=== PATIENT | female | born 1950 | race Caucasian/White ===

== ENCOUNTER → 2016-09-09 18:47 | Outpatient (CLI) | payer MEDICARE | END | disposition home or self-care (01) | LOC: D.LABREF 18:47 | DX: Z11.59 Encounter for screening for other viral diseases (principal) ==

== ENCOUNTER → 2017-04-13 12:09 | Outpatient (CLI) | payer MEDICARE | END | disposition home or self-care (01) | LOC: D.CT 11:30 | DX: S32.401A Unspecified fracture of right acetabulum, initial encounter for closed fracture (principal); X58.XXXA Exposure to other specified factors, initial encounter; Y93.89 Activity, other specified; Y92.029 Unspecified place in mobile home as the place of occurrence of the external cause ==

== ENCOUNTER 2017-06-25 10:20 | Emergency (ER) | payer MEDICARE ==
[2017-06-25 10:50] LABS: BASOPHILS 0.1 % (0-2); HEMATOCRIT 41.9 % (36.0-48.0); HEMOGLOBIN 14.4 g/dL (12-16); IMMATURE GRANULOCYTES 0.1 % (0-5); LYMPHOCYTES 19.2 % (15-50); MCH 30.3 pg (26.0-34.0); MCHC 34.4 g/dL (31.0-37.0); MCV 88.2 fL (80.0-100.0); MEAN PLATELET VOLUME 9.3 fL (7.4-10.4); MONOCYTES 7.6 % (2-11); PLATELET COUNT 215 10x3/uL (130-400); RBC 4.75 10x6/uL (4.00-5.40); RDW 12.8 % (11.5-14.5)
[2017-06-25 10:52] LABS: APPEARANCE CLEAR (CLEAR); BILIRUBIN NEGATIVE (NEGATIVE); COLOR YELLOW (YELLOW); GLUCOSE NEGATIVE (NEGATIVE); KETONE NEGATIVE (NEGATIVE); NITRITE NEGATIVE (NEGATIVE); PROTEIN NEGATIVE (NEGATIVE); SPECIFIC GRAVITY 1.015 (1.005-1.020); UROBILINOGEN NORMAL (NORMAL)
[2017-06-25 10:59] LABS: UDS - AMPHET NEGATIVE QUAL (NEGATIVE); UDS - BARB NEGATIVE QUAL (NEGATIVE); UDS - BENZO NEGATIVE QUAL (NEGATIVE); UDS - COCAINE NEGATIVE QUAL (NEGATIVE); UDS - OPIATE NEGATIVE QUAL (NEGATIVE); UDS - PCP NEGATIVE QUAL (NEGATIVE); UDS - THC NEGATIVE QUAL (NEGATIVE)
[2017-06-25 11:12] LABS: ALBUMIN 3.9 g/dL (3.4-5.0); ALKALINE PHOSPHATASE 88 U/L (46-116); ALT (SGPT) 35 U/L (10-68); BILIRUBIN - TOTAL 0.31 mg/dL (0.2-1.3); CALC OSMOLALITY 281 mosm/kg (275-300); CALCIUM 8.7 mg/dL (8.5-10.1); CARBON DIOXIDE 26.2 mmol/L (21.0-32.0); CHLORIDE - SERUM 104 mmol/L (98-107); CREATININE - SERUM 0.8 mg/dL (0.6-1.3); GLUCOSE 137 mg/dL (74-106); POTASSIUM - SERUM 3.5 mmol/L (3.5-5.1); PROTEIN - SERUM 7.3 g/dL (6.4-8.2); SODIUM 139 mmol/L (136-145); UREA NITROGEN 18 mg/dL (7-18); eGFR NON AFRICAN AMERICAN 75 mL/min (90-120)
== END 2017-06-25 16:23 | disposition short-term general hospital (02) ==
LOC: D.ER 10:20
PROVIDERS: Family Medicine
DX: R41.82 Altered mental status, unspecified (principal); I10 Essential (primary) hypertension

== ENCOUNTER 2017-12-03 10:16 | Inpatient (IN) | payer MEDICARE ==
[2017-12-03] VITALS (7 sets, daily range): BP systolic 140–186; BP diastolic 76–99; BMI 27.0
[~2017-12-03] VITALS: Ht 170.2 cm; Wt 79.1 kg
[2017-12-03] MEDS ORDERED: ZESTRIL40 MG PO (10:21)
[2017-12-03 11:08] LABS: BASOPHILS 0.1 % (0-2); EOSINOPHILS 0 % (0-7); HEMATOCRIT 42.3 % (36.0-48.0); HEMOGLOBIN 14.6 g/dL (12-16); IMMATURE GRANULOCYTES 0.3 % (0-5); LYMPHOCYTES 6.4 % (15-50); MCH 28.9 pg (26.0-34.0); MCHC 34.5 g/dL (31.0-37.0); MCV 83.6 fL (80.0-100.0); MONOCYTES 8.6 % (2-11); NEUTROPHILS 84.6 % (40-80); PLATELET COUNT 244 10x3/uL (130-400); RBC 5.06 10x6/uL (4.00-5.40); RDW 12.9 % (11.5-14.5); WBC 13.5 10x3/uL (4.8-10.8)
[2017-12-03 11:11] LABS: APTT 27.3 SECONDS (22.8-39.4); INR 1.02 (0.85-1.17)
[2017-12-03 11:11] LABS: UDS - AMPHET NEGATIVE QUAL (NEGATIVE); UDS - BARB NEGATIVE QUAL (NEGATIVE); UDS - BENZO NEGATIVE QUAL (NEGATIVE); UDS - COCAINE NEGATIVE QUAL (NEGATIVE); UDS - OPIATE NEGATIVE QUAL (NEGATIVE); UDS - PCP NEGATIVE QUAL (NEGATIVE); UDS - THC NEGATIVE QUAL (NEGATIVE)
[2017-12-03 11:16] LABS: APPEARANCE CLOUDY (CLEAR); BILIRUBIN NEGATIVE (NEGATIVE); COLOR DK YELLOW (YELLOW); GLUCOSE NEGATIVE (NEGATIVE); KETONE SMALL mg/dL (NEGATIVE); NITRITE NEGATIVE (NEGATIVE); PROTEIN 2+ mg/dL (NEGATIVE); UROBILINOGEN NORMAL (NORMAL)
[2017-12-03 11:20] LABS: BACTERIA MODERATE /hpf (NONE SEEN); EPITHELIAL CELLS 0-5 /hpf (0-5); GRANULAR CAST OCC /lpf (NONE SEEN); HYALINE CAST 0-5 /lpf (NONE SEEN); MUCUS >1+ /lpf (NONE SEEN); RED CELLS - URINE 0-5 /hpf (0-5)
[2017-12-03 11:30] LABS: ALBUMIN 3.6 g/dL (3.4-5.0); ALKALINE PHOSPHATASE 132 U/L (46-116); ALT (SGPT) 25 U/L (10-68); AMYLASE - SERUM 26 U/L (25-115); BILIRUBIN - DIRECT 0.13 mg/dL (0.00-0.30); BILIRUBIN - TOTAL 0.52 mg/dL (0.2-1.3); CALC OSMOLALITY 274 mosm/kg (275-300); CALCIUM 8.9 mg/dL (8.5-10.1); CARBON DIOXIDE 28.9 mmol/L (21.0-32.0); CHLORIDE - SERUM 97 mmol/L (98-107); CKMB 1.3 U/L (0.0-3.6); CREATINE KINASE 91 UL (21-215); GLUCOSE 148 mg/dL (74-106); LIPASE 90 U/L (73-393); MAGNESIUM - SERUM 1.9 mg/dL (1.8-2.4); POTASSIUM - SERUM 3.7 mmol/L (3.5-5.1); PROTEIN - SERUM 8.3 g/dL (6.4-8.2); SODIUM 136 mmol/L (136-145); THYROID STIMULATING HORMONE 0.97 uIU/mL (0.36-3.74); TROPONIN-I < 0.017 ng/mL (0.000-0.060); UREA NITROGEN 12 mg/dL (7-18)
[2017-12-03 11:37] LABS: CREATININE - SERUM 0.9 mg/dL (0.6-1.3); eGFR NON AFRICAN AMERICAN 66 mL/min (90-120)
[2017-12-03] MEDS ORDERED: LISINOPRIL10 MG PO (15:21)
[2017-12-03] MEDS ORDERED: DITROPAN X10 MG/BOTT PO (15:23)
[2017-12-03 18:19] LABS: CHOL - HDL RATIO 2.9 ratio (2.3-4.1); LDL-HDL RATIO 1.8 ratio (1.5-3.5)
[2017-12-04 05:25] LABS: BASOPHILS 0.1 % (0-2); EOSINOPHILS 0 % (0-7); HEMATOCRIT 40.1 % (36.0-48.0); HEMOGLOBIN 13.8 g/dL (12-16); IMMATURE GRANULOCYTES 0.3 % (0-5); LYMPHOCYTES 6.1 % (15-50); MCH 28.9 pg (26.0-34.0); MCHC 34.4 g/dL (31.0-37.0); MCV 83.9 fL (80.0-100.0); MEAN PLATELET VOLUME 9.5 fL (7.4-10.4); MONOCYTES 11.1 % (2-11); NEUTROPHILS 82.4 % (40-80); PLATELET COUNT 262 10x3/uL (130-400); RBC 4.78 10x6/uL (4.00-5.40); RDW 13.2 % (11.5-14.5); WBC 16.1 10x3/uL (4.8-10.8)
[2017-12-04 05:51] LABS: ALBUMIN 2.8 g/dL (3.4-5.0); ANION GAP 13.2 mmol/L (8-16); BILIRUBIN - TOTAL 0.76 mg/dL (0.2-1.3); CALCIUM 8.7 mg/dL (8.5-10.1); CARBON DIOXIDE 26.5 mmol/L (21.0-32.0); POTASSIUM - SERUM 3.7 mmol/L (3.5-5.1); PROTEIN - SERUM 7.1 g/dL (6.4-8.2)
[2017-12-04 11:53] VITALS: BP 89/58
[2017-12-04 13:14] VITALS: BMI 26.2
[2017-12-04 16:17] VITALS: BP 127/73
[2017-12-04 20:32] VITALS: BP 85/56
[2017-12-05 01:16] VITALS: BP 101/59
[2017-12-05 04:00] VITALS: BP 84/54
[2017-12-05 05:50] LABS: ALBUMIN 2.2 g/dL (3.4-5.0); ANION GAP 15.4 mmol/L (8-16); BILIRUBIN - TOTAL 0.7 mg/dL (0.2-1.3); CARBON DIOXIDE 24.2 mmol/L (21.0-32.0); CREATININE - SERUM 1.2 mg/dL (0.6-1.3); POTASSIUM - SERUM 3.6 mmol/L (3.5-5.1)
[2017-12-05 05:53] LABS: BASOPHILS 0.1 % (0-2); EOSINOPHILS 0 % (0-7); HEMATOCRIT 35.6 % (36.0-48.0); IMMATURE GRANULOCYTES 0.5 % (0-5); MCH 28.6 pg (26.0-34.0); MCHC 33.7 g/dL (31.0-37.0); MCV 84.8 fL (80.0-100.0); MEAN PLATELET VOLUME 9.5 fL (7.4-10.4); MONOCYTES 9.8 % (2-11); NEUTROPHILS 80.6 % (40-80); PLATELET COUNT 220 10x3/uL (130-400); RDW 13.4 % (11.5-14.5); WBC 15.5 10x3/uL (4.8-10.8)
[2017-12-05 08:14] VITALS: Ht 170.2 cm; Wt 79.1 kg
[2017-12-05 08:18] VITALS: BP 165/63
[2017-12-05 11:17] VITALS: BP 169/75
[2017-12-05 17:37] VITALS: BP 119/74
[2017-12-05 21:25] VITALS: BP 143/89
[2017-12-06 01:28] VITALS: BP 132/91
[2017-12-06 04:00] VITALS: BP 132/89
[2017-12-06 05:11] LABS: BASOPHILS 0 % (0-2); EOSINOPHILS 0 % (0-7); HEMATOCRIT 37.3 % (36.0-48.0); HEMOGLOBIN 12.6 g/dL (12-16); IMMATURE GRANULOCYTES 0.4 % (0-5); LYMPHOCYTES 3.8 % (15-50); MCH 28.6 pg (26.0-34.0); MCHC 33.8 g/dL (31.0-37.0); MCV 84.8 fL (80.0-100.0); MEAN PLATELET VOLUME 9.4 fL (7.4-10.4); MONOCYTES 5.9 % (2-11); NEUTROPHILS 89.9 % (40-80); PLATELET COUNT 256 10x3/uL (130-400); RDW 13.5 % (11.5-14.5); WBC 12.9 10x3/uL (4.8-10.8)
[2017-12-06 05:31] LABS: ANION GAP 15.9 mmol/L (8-16); BILIRUBIN - TOTAL 0.5 mg/dL (0.2-1.3); CALCIUM 8.5 mg/dL (8.5-10.1); CARBON DIOXIDE 24.1 mmol/L (21.0-32.0); CREATININE - SERUM 0.9 mg/dL (0.6-1.3); PROTEIN - SERUM 6.2 g/dL (6.4-8.2)
[2017-12-06 09:05] VITALS: BP 137/93
[2017-12-06 11:14] VITALS: BP 143/89
[2017-12-06 15:40] VITALS: BP 124/81
[2017-12-06 21:55] VITALS: BP 150/86
[2017-12-07 00:58] VITALS: BP 132/88
[2017-12-07 04:00] VITALS: BP 150/90
[2017-12-07 05:51] LABS: BASOPHILS 0 % (0-2); EOSINOPHILS 0 % (0-7); HEMATOCRIT 31.5 % (36.0-48.0); HEMOGLOBIN 10.4 g/dL (12-16); IMMATURE GRANULOCYTES 0.4 % (0-5); LYMPHOCYTES 9.9 % (15-50); MCV 84.7 fL (80.0-100.0); MEAN PLATELET VOLUME 9.1 fL (7.4-10.4); MONOCYTES 9.6 % (2-11); NEUTROPHILS 80.1 % (40-80); PLATELET COUNT 249 10x3/uL (130-400); RBC 3.72 10x6/uL (4.00-5.40); RDW 13.7 % (11.5-14.5); WBC 10.9 10x3/uL (4.8-10.8)
[2017-12-07 06:20] LABS: ALBUMIN 1.8 g/dL (3.4-5.0); ALKALINE PHOSPHATASE 99 U/L (46-116); ALT (SGPT) 70 U/L (10-68); BILIRUBIN - TOTAL 0.34 mg/dL (0.2-1.3); CALC OSMOLALITY 280 mosm/kg (275-300); CALCIUM 8.3 mg/dL (8.5-10.1); CARBON DIOXIDE 29.1 mmol/L (21.0-32.0); CHLORIDE - SERUM 106 mmol/L (98-107); CREATININE - SERUM 0.7 mg/dL (0.6-1.3); GLUCOSE 125 mg/dL (74-106); POTASSIUM - SERUM 3.8 mmol/L (3.5-5.1); PROTEIN - SERUM 5.7 g/dL (6.4-8.2); SODIUM 140 mmol/L (136-145); UREA NITROGEN 14 mg/dL (7-18); eGFR NON AFRICAN AMERICAN 88 mL/min (90-120)
[2017-12-07 08:15] VITALS: BP 146/85
[2017-12-07] MEDS ORDERED: LEVAQUIN750 MG PO (10:10)
[2017-12-07] MEDS ORDERED: HYDROCODON-ACE1 EAC7 PO (12:17)
[2017-12-07 12:34] VITALS: BP 127/84
== END 2017-12-07 14:06 | disposition home or self-care (01) | DRG 853 ==
LOC: D.ER 10:16 → D.M2 14:05 → D.EDHOLD 14:05 → D.M2 14:26
PROVIDERS: Emergency Medicine; Family Medicine; Internal Medicine Nephrology; Surgery
PROC: 0FT44ZZ Resection of Gallbladder, Percutaneous Endoscopic Approach (ICD-10-PCS; principal; 2017-12-05 12:30)
DX: A41.9 Sepsis, unspecified organism (principal); G93.40 Encephalopathy, unspecified; N39.0 Urinary tract infection, site not specified; K81.0 Acute cholecystitis; F05 Delirium due to known physiological condition; I10 Essential (primary) hypertension

== ENCOUNTER 2017-12-25 06:30 | Outpatient (CLI) | payer MEDICARE ==
[2017-12-05 08:14] VITALS: BMI 26.2
[~2017-12-25 06:30] MED LIST: DITROPAN X10 MG/BOTT PO; HYDROCODON-ACE1 EAC7 PO; LEVAQUIN750 MG PO; LISINOPRIL10 MG PO; ZESTRIL40 MG PO
== END 2017-12-25 23:59 | disposition home or self-care (01) ==
LOC: D.MAMMO 06:30
DX: K80.10 Calculus of gallbladder with chronic cholecystitis without obstruction (principal)

== ENCOUNTER 2018-01-01 06:15 | Day surgery (SDC) | payer MEDICARE ==
[2017-12-29 11:58] LABS: BASOPHILS 0.5 % (0-2); EOSINOPHILS 1.6 % (0-7); HEMATOCRIT 40.3 % (36.0-48.0); IMMATURE GRANULOCYTES 0.5 % (0-5); LYMPHOCYTES 35.6 % (15-50); MCH 28.6 pg (26.0-34.0); MCHC 32.3 g/dL (31.0-37.0); MCV 88.8 fL (80.0-100.0); MEAN PLATELET VOLUME 9.1 fL (7.4-10.4); MONOCYTES 11.1 % (2-11); NEUTROPHILS 50.7 % (40-80); PLATELET COUNT 190 10x3/uL (130-400); RBC 4.54 10x6/uL (4.00-5.40); RDW 14.2 % (11.5-14.5); WBC 3.8 10x3/uL (4.8-10.8)
[2017-12-29 12:06] LABS: APTT 25.3 SECONDS (22.8-39.4); INR 0.98 (0.85-1.17); PROTIME 12.6 SECONDS (11.6-15.0)
[~2018-01-01] VITALS: Ht 170.2 cm; Wt 74.8 kg
[2018-01-01 07:12] VITALS: BP 145/74; Ht 170.2 cm; Wt 74.8 kg
[2018-01-01] MEDS ORDERED: HYDROCODON-ACE1 EAC7 PO (09:22)
== END 2018-01-01 11:25 | disposition home or self-care (01) ==
LOC: D.OPS 06:15 → D.PAN 09:00 → D.OPS 09:00 → D.PAN 09:10 → D.OPS 11:25
PROVIDERS: Anesthesiology
DX: C22.1 Intrahepatic bile duct carcinoma (principal); Z01.812 Encounter for preprocedural laboratory examination

== ENCOUNTER → 2018-01-11 10:21 | Outpatient (CLI) | payer MEDICARE ==
[2018-01-01 07:12] VITALS: BMI 25.9
[~2018-01-11 10:21] MED LIST changes: +CLEOCIN HCL300 MG PO
== END | disposition home or self-care (01) ==
LOC: D.CT 10:21
DX: K80.10 Calculus of gallbladder with chronic cholecystitis without obstruction (principal)

== ENCOUNTER → 2018-01-17 13:15 | Outpatient (CLI) | payer MEDICARE ==
[2018-01-01 07:12] VITALS: BMI 25.9
== END | disposition home or self-care (01) ==
LOC: D.US 13:15
DX: N63.11 Unspecified lump in the right breast, upper outer quadrant (principal)

== ENCOUNTER 2018-02-14 05:55 | Day surgery (SDC) | payer MEDICARE ==
[2018-02-13 11:39] LABS: BASOPHILS 0.2 % (0-2); EOSINOPHILS 1.4 % (0-7); HEMATOCRIT 42.2 % (36.0-48.0); HEMOGLOBIN 14.1 g/dL (12-16); IMMATURE GRANULOCYTES 0.2 % (0-5); LYMPHOCYTES 31.4 % (15-50); MCH 28.9 pg (26.0-34.0); MCHC 33.4 g/dL (31.0-37.0); MCV 86.5 fL (80.0-100.0); MEAN PLATELET VOLUME 9.2 fL (7.4-10.4); MONOCYTES 9.1 % (2-11); NEUTROPHILS 57.7 % (40-80); PLATELET COUNT 173 10x3/uL (130-400); RBC 4.88 10x6/uL (4.00-5.40); RDW 13.9 % (11.5-14.5); WBC 4.4 10x3/uL (4.8-10.8)
[2018-02-13 12:07] LABS: APTT 30.9 SECONDS (22.8-39.4); INR 1.1 (0.85-1.17); PROTIME 13.6 SECONDS (11.6-15.0)
[~2018-02-14] VITALS: Ht 167.6 cm; Wt 76.2 kg
--- NOTE | ~2018-02-14 | OP ---
PATIENT NAME: SAMY MENCHACA MEDICAL RECORD: [id number] :46 LOCATION:D.OPS ADMISSION DATE: SURGEON: FEDE WHITAKER MD DATE OF OPERATION: 02/14/2018 SURGEON: Fede Whitaker MD MANUFACTURING MECHANIC: Sumaya Frankel APN PREOPERATIVE DIAGNOSES: 1. Metastatic cancer with unknown primary. 2. Breast mass. POSTOPERATIVE DIAGNOSES: 1. Metastatic cancer with unknown primary. 2. Breast mass. PROCEDURE PERFORMED: 1. Needle right breast lumpectomy with preoperative needle localization. 2. [place] lymph node biopsy using Lymphazurin blue dye. ANESTHESIA: General. COMPLICATIONS: None. SPECIMENS: 1. Right breast lumpectomy with wire. 2. Right sentinel lymph node. ESTIMATED BLOOD LOSS: 50 cc. WOUND CLASS: Clean. OPERATIVE COURSE: After consent was obtained, the patient was taken to the operating room. Mammographic images were placed. A timeout was taken to confirm the correct patient and procedure. General anesthesia was given. The right breast was prepped and draped in typical sterile fashion. There was a needle located in the right upper outer quadrant. Local anesthetic was injected around the needle. The elliptical skin incision was made approximately 4 cm in diameter. Dissection continued with sharp scissor dissection along the length and course of the wire creating a wide tissue plane. Once the right breast lumpectomy and needle localization wire were fully and circumferentially dissected, they were placed in the mammography plate and sent for radiographic confirmation, which was complete. Lymphazurin dye was injected in a circumareolar fashion. The right breast incision was packed and axillary incision was then made. Using a 15 blade scalpel, dissection continued to the subcutaneous tissue using Metzenbaum scissor dissection. A large blue lymph node was identified. It was circumferentially dissected using Hemoclips and sharp scissor dissection. Once segments were dissected, it was passed off the field and sent for permanent pathology. The axillary wound was then copiously irrigated and suctioned. Surgicel was applied. The incision was closed in 2 layers. Subcutaneous was closed with 3-0 Vicryl suture. The skin was closed with 4-0 Stratafix, Mastisol, and Steri-Strips. The packing was removed in the right breast incision. The wound was copiously irrigated and suctioned. Hemostasis was obtained with electrocautery. The Surgicel was placed into the OPERATIVE REPORT [id number] SAMY MENCHACA wound bed. The deep subcutaneous was closed with 3-0 Vicryl suture, superficial subcutaneous tissue was closed with 3-0 Vicryl suture. The skin was closed with 4-0 Stratafix, Mastisol, and Steri-Strips. At the end of the case, all needle and instrument counts were correct. No complications occurred. Gauze dressings were placed over the incisions as well as circumferential Francis wraps. At the end of the case, all needle and instrument counts were correct. No complications occurred. The patient was extubated and transferred to the PACU in stable condition. TRANSINT:[id number] Voice Confirmation ID: [id number] DOCUMENT ID: [id number] FEDE WHITAKER MD at 1240 CC: [id number] DICTATION DATE: 02/14/18 1120 HAND SPRING REPAIRER HELPER: 02/14/18 1218 [id number] [place] [address]
[~2018-02-14 05:55] MED LIST changes: -CLEOCIN HCL300 MG PO
[2018-02-14 09:07] VITALS: BP 126/76; Ht 167.6 cm; Wt 76.2 kg
[2018-02-14] MEDS ORDERED: HYDROCODON-ACE1 EAC7 PO (11:14)
== END 2018-02-14 14:35 | disposition home or self-care (01) ==
LOC: D.OPS 05:55 → D.MAMMO 08:00 → D.OPS 08:00 → D.PAN 08:00 → D.OPS 14:35
PROVIDERS: Anesthesiology
DX: C79.9 Secondary malignant neoplasm of unspecified site (principal); N63.11 Unspecified lump in the right breast, upper outer quadrant; Z01.812 Encounter for preprocedural laboratory examination

== ENCOUNTER 2018-03-13 10:45 | Emergency (ER) | payer MEDICARE ==
[~2018-03-13] VITALS: Ht 167.6 cm; Wt 75.0 kg
[2018-03-13 10:49] VITALS: Ht 167.6 cm; Wt 75.0 kg
[2018-03-13 11:43] LABS: BASOPHILS 0.2 % (0-2); EOSINOPHILS 1.6 % (0-7); HEMATOCRIT 36.1 % (36.0-48.0); HEMOGLOBIN 11.9 g/dL (12-16); IMMATURE GRANULOCYTES 0.2 % (0-5); LYMPHOCYTES 27.5 % (15-50); MCH 29.2 pg (26.0-34.0); MCV 88.5 fL (80.0-100.0); MEAN PLATELET VOLUME 8.9 fL (7.4-10.4); NEUTROPHILS 55.5 % (40-80); RBC 4.08 10x6/uL (4.00-5.40); RDW 13.6 % (11.5-14.5); WBC 5.5 10x3/uL (4.8-10.8)
[2018-03-13 11:44] LABS: PLATELET COUNT 213 10x3/uL (130-400)
[2018-03-13 11:58] LABS: ALBUMIN 3.1 g/dL (3.4-5.0); ALKALINE PHOSPHATASE 86 U/L (46-116); ALT (SGPT) 22 U/L (10-68); BILIRUBIN - TOTAL 0.26 mg/dL (0.2-1.3); C-REACTIVE PROTEIN 4.8 mg/dL (0.0-0.9); CALC OSMOLALITY 279 mosm/kg (275-300); CALCIUM 8.7 mg/dL (8.5-10.1); CARBON DIOXIDE 24.9 mmol/L (21.0-32.0); CHLORIDE - SERUM 105 mmol/L (98-107); CREATININE - SERUM 0.8 mg/dL (0.6-1.3); GLUCOSE 106 mg/dL (74-106); POTASSIUM - SERUM 4.3 mmol/L (3.5-5.1); PROTEIN - SERUM 6.6 g/dL (6.4-8.2); SODIUM 139 mmol/L (136-145); UREA NITROGEN 17 mg/dL (7-18); eGFR NON AFRICAN AMERICAN 75 mL/min (90-120)
[2018-03-13] MEDS ORDERED: CLEOCIN HCL300 MG PO (14:06)
[2018-03-13 14:35] VITALS: BP 128/73
== END 2018-03-13 14:35 | disposition home or self-care (01) ==
LOC: D.ER 10:45
PROVIDERS: Emergency Medicine
DX: L76.32 Postprocedural hematoma of skin and subcutaneous tissue following other procedure (principal); Z98.890 Other specified postprocedural states; Z86.73 Personal history of transient ischemic attack (TIA), and cerebral infarction without residual deficits; I10 Essential (primary) hypertension

== ENCOUNTER → 2018-06-21 12:01 | Outpatient (CLI) | payer MEDICARE ==
[2018-03-13 10:49] VITALS: BMI 26.7
--- NOTE | ~2018-06-21 | HEMODYNAMI ---
PATIENT:SAMY MENCHACA MEDICAL RECORD: [id number] : 46 LOCATION:AKUA ADMISSION DATE: 06/21/18 Generatedon:06/21/201813:06 Patient name: SAMY MENCHACA Patient #: [id number] SSN: DO B: 1950 Date of study: 06/21/2018 Page: Of Hemodynamic Procedure Report Patient Data Patient Demographics Procedure consent was obtained First Name: SAMY Gender: Female Last Name: NIKOLAI : 1950 Middle Initial: SAMMY Age: 68 year(s) Patient #: [id number] Race: Unknown Additional ID: [id number] Contact details [address]: [address] [place] [address] State: [place] City: [place] Zip code: [address] Past Medical History Allergies Allergen Reaction Date Comments Reported NSAIDs 06/21/2018 Admission Admission Data Admission Date: 06/21/2018 Admission Time: 12:01 Procedure Procedure Types Cath Procedure Peripheral Cath Diagnostic Procedure Design Quality Engineer Peripheral Procedures Miscellaneous Cathetergram Procedure Description Procedure Date Procedure Date: 06/21/2018 Procedure Start Time: 13:03 Procedure Staff Name Function Lily Betancur RT Superintendent Laundry Allie Nunn MD Performing Physician Cayla Vital RN Nurse Procedure Data Cath Procedure Fluoroscopy Diagnostic fluoroscopy Total fluoroscopy Time: 0.2 time: 0.2 min min Diagnostic fluoroscopy Total fluoroscopy dose: 11 dose: 11 mGy mGy Contrast Material Contrast Material Type Amount (ml) Isovue 300 12 Hemodynamics Rest Pre Cath Intra NCS Post Cath Procedure Log Time Note 12:49:03 Time tracking: Regular hours (M-F 7:00 - 5:00) 12:50:02 Signed procedure consent form obtained from patient. 12:50:04 Physician arrived 12:50:06 Pre-procedure instructions explained to patient. 12:50:07 Pre-op teaching completed and patient verbalized understanding. 12:50:11 Family in waiting room. 12:50:34 Patient allergic to NSAIDs, celebrex 12:50:50 Is the patient allergic to Iodine/contrast media? No. 12:50:57 Is patient on blood thinner?No 12:51:13 Patient diabetic? No. 12:51:15 - 12:51:29 Left chest area was prepped with chlora-prep and draped in sterile fashion 12:52:18 --------ALL STOP TIME OUT------ 12:52:39 Final Timeout: patient, procedure, and site verified with staff and physician. All members of the team are in agreement. 12:53:10 Full Disclosure recording started 12:53:10 Procedure started. 12:55:54 injected contrast into port 13:05:02 Procedure ended.(Physican Out) 13:05:14 Fluoroscopy time 00.20 minutes. 13:05:18 Flurop Dose total: 11 13:05:18 Fluoroscopy dose: 11 mGy 13:05:25 Contrast amount:Isovue 300 12ml. Signature Audit [place] Stage Time Signature Unsigned Intra-Procedure 06/21/2018 Lily Betancur 1:06:02 PM RT(R) [id number] [place] [address]
[~2018-06-21 12:01] MED LIST changes: +CALCIUM 500 +1 EAC3; +CLEOCIN HCL300 MG PO
== END | disposition home or self-care (01) ==
LOC: D.SP 12:01
DX: T85.618A Breakdown (mechanical) of other specified internal prosthetic devices, implants and grafts, initial encounter (principal); Z01.812 Encounter for preprocedural laboratory examination

== ENCOUNTER 2018-07-12 10:20 | Day surgery (SDC) | payer OTHER ==
[2018-07-09 17:07] LABS: BASOPHILS 0.4 % (0-2); HEMATOCRIT 34.8 % (36.0-48.0); HEMOGLOBIN 11.6 g/dL (12-16); IMMATURE GRANULOCYTES 0.2 % (0-5); LYMPHOCYTES 29.5 % (15-50); MCH 30.9 pg (26.0-34.0); MCHC 33.3 g/dL (31.0-37.0); MCV 92.8 fL (80.0-100.0); MEAN PLATELET VOLUME 8.8 fL (7.4-10.4); MONOCYTES 11.2 % (2-11); NEUTROPHILS 56.7 % (40-80); PLATELET COUNT 251 10x3/uL (130-400); RBC 3.75 10x6/uL (4.00-5.40); WBC 5.1 10x3/uL (4.8-10.8)
[2018-07-09 17:22] LABS: APTT 28.7 SECONDS (22.8-39.4); INR 0.86 (0.85-1.17); PROTIME 11.2 SECONDS (11.6-15.0)
[~2018-07-12] VITALS: Ht 167.6 cm; Wt 71.2 kg
--- NOTE | ~2018-07-12 | OP ---
PATIENT NAME: SAMY MENCHACA MEDICAL RECORD: [id number] :46 LOCATION:D.OPS ADMISSION DATE: SURGEON: SAMY ONEAL DATE OF OPERATION: 07/12/2018 SURGEON: Samy Oneal DPM PREOPERATIVE DIAGNOSES: 1. Hallux abductovalgus, left foot. 2. Ingrown toenail, left great toe. 3. Ingrown toenail, right great toe. POSTOPERATIVE DIAGNOSES: 1. Hallux abductovalgus, left foot. 2. Ingrown toenail, left great toe. 3. Ingrown toenail, right great toe. PROCEDURES: 1. Cesar-Behzad bunionectomy, left foot. 2. Total permanent chemical matrixectomy, left great toe. 3. Total permanent chemical matrixectomy, right great toe. ANESTHESIA: General. HEMOSTASIS: Pneumatic ankle tourniquet inflated to 250 mmHg. ESTIMATED BLOOD LOSS: Minimal. MATERIALS: One 2.5-mm cannulated screw and one Quick Staple, both [employer]. INJECTABLES: 20 cc of 0.5% bupivacaine plain. The patient has long-standing history of pain associated with left foot bunion deformity and ingrown toenails on both great toes. We have discussed the proposed procedures. Risks and benefits were discussed. Complications were reviewed. All questions were answered. She was appropriately consented for the above-mentioned procedures. DESCRIPTION OF PROCEDURE: The patient was brought into the operating room and placed on the operating table in supine position. A time-out was called by Dr. Oneal, who identified the patient, the surgical site, and the surgery to be performed. Once appropriate anesthesia was obtained, the feet was prepped and draped in the usual aseptic manner. The pneumatic ankle tourniquet was inflated to 250 mmHg on the well-padded left ankle. Attention was directed to the dorsal aspect of the left first metatarsophalangeal joint, where a 6-cm linear incision was made just medial to the extensor hallucis longus tendon. This incision was carried deep to soft tissue with care being taken to retract all vital neurovascular structures. All bleeders were cauterized along the way. The first intermetatarsal space was entered utilizing both sharp and blunt dissection. The conjoined tendon of the adductor hallucis muscle was noted at the base of the proximal phalanx and was OPERATIVE REPORT [id number] SAMY MENCHACA sharply transected at this level. Attention was further directed proximally and the fibular sesamoidal ligament was identified and sharply transected. Attention was directed to the dorsal aspect of the first metatarsophalangeal joint, where a linear incision was made and all periosteum was reflected from the head of the first metatarsal as well as the base of the proximal phalanx. The head of the first metatarsal was noted to be hypertrophied medially. Utilizing a sagittal saw, the hypertrophied medial eminence was removed. Next, utilizing a sagittal saw, a V-shaped osteotomy was created in the head of the first metatarsal. This was a [id number]-[id number]-tamtuxa osteotomy. The capital fragment was shifted laterally and impacted upon the first metatarsal shaft. Utilizing dog food dough mixer's recommended technique, one 2.5-mm screw was placed across the osteotomy. All remaining overhanging bone from the medial aspect of the first metatarsal was removed with a sagittal saw. Attention was then directed to the base of the proximal phalanx, where a V-shaped osteotomy was created with the apex oriented laterally. The wedge-shaped bone was removed and the osteotomy was reduced. The osteotomy was then fixated utilizing one [employer] Quick Staple. The surgical site was then irrigated with copious amounts of normal sterile saline via bulb syringe. Any remaining sharp bone edges were removed with rasp and rongeur. The periosteum was approximated and coapted utilizing 3-0 Vicryl. The subcutaneous was then reapproximated and coapted using 4-0 Vicryl. The skin was then reapproximated and coapted using 4-0 nylon. A dressing consisting of Xeroform, 4 x 4's, Kerlix, and Coban was applied to the left foot. TOTAL PERMANENT CHEMICAL MATRIXECTOMY, LEFT GREAT TOE: Using sterile instrumentation, the entire nail plate was loosened from the underlying nail bed with the spatula and removed in toto with hemostat. The nail grooves were then curetted free of all debris with a curette. Next, 10% NaOH was applied to the exposed matrix for 10 seconds. The nail groove was then flushed with copious amounts of normal sterile saline. A dressing consisting of antibiotic ointment, 4 x 4's, Kerlix, and Coban was applied to the left great toe. TOTAL PERMANENT CHEMICAL MATRIXECTOMY, RIGHT GREAT TOE: The exact same procedure that was performed on the left great toe was performed on the right great toe without exception. The pneumatic ankle tourniquet was released from the left ankle and cap refill time was noted to be immediate to the left foot. The patient tolerated the procedure and the anesthesia well. She left the operating room with vital signs stable and capillary refill time intact. The patient was discharged home with instructions to ice and elevate her feet. She was dispensed a boot to help offload the left foot. She was provided prescription for pain medications with [place] 7.5/325, #30; ibuprofen 800 mg, #30; and Phenergan 25 mg, #20. She was also provided with my cell phone number for any after hour difficulties and there were no complications with this procedure. TRANSINT:[id number] Voice Confirmation ID: [id number] DOCUMENT ID: [id number] OPERATIVE REPORT [id number] SAMY MENCHACA DAVID J CC: [id number] DICTATION DATE: 07/12/18 1424 FUR SEWER: 07/12/18 [address] [facility] [place] 07/12/18 [id number] [place] [address]
[2018-07-12 11:43] VITALS: BP 162/72; Ht 167.6 cm; Wt 71.2 kg
--- NOTE | 2018-07-12 15:46 | NUR ---
1515 IV DC'D. CATHETER INTACT. NO BLEEDING AT SITE AFTER HOLDING PRESSURE FOR 2 MINUTES. BANDAID APPLIED. 1530 PT GIVEN DISCHARGE INSTRUCTIONS. QUESTIONS ANSWERED. PT READY TO GO HOME. 1542 PT TRANSPORTED TO CAR FOR DISCHARGE HOME VIA WC.
== END 2018-07-12 15:42 | disposition home or self-care (01) ==
LOC: D.OPS 10:20 → D.PAN 14:15 → D.OPS 14:15
PROVIDERS: Anesthesiology
DX: M20.12 Hallux valgus (acquired), left foot (principal); L60.0 Ingrowing nail; Z01.812 Encounter for preprocedural laboratory examination

== ENCOUNTER 2019-07-15 11:00 | Outpatient (CLI) | payer OTHER ==
[2018-07-12 11:43] VITALS: BMI 25.4
== END 2019-07-15 11:30 | disposition home or self-care (01) ==
LOC: D.MAMMO 11:00
PROVIDERS: ATTEND Internal Medicine Hematology & Oncology
DX: D05.11 Intraductal carcinoma in situ of right breast (principal)

== ENCOUNTER 2019-08-16 11:47 | Emergency (ER) | payer OTHER ==
[~2019-08-16] VITALS: Ht 167.6 cm; Wt 72.7 kg
[2019-08-16 11:56] VITALS: Ht 167.6 cm; Wt 72.7 kg
[2019-08-16 12:44] VITALS: BP 146/81
== END 2019-08-16 12:50 | disposition home or self-care (01) ==
LOC: D.ER 11:47
DX: S60.445A External constriction of left ring finger, initial encounter (principal); W49.09XA Other specified item causing external constriction, initial encounter; M79.89 Other specified soft tissue disorders; I10 Essential (primary) hypertension

== ENCOUNTER → 2020-10-15 21:21 | Outpatient (CLI) | payer OTHER ==
[2019-08-16 11:56] VITALS: BMI 25.8
== END | disposition home or self-care (01) ==
LOC: D.MAMMO 11:00
PROVIDERS: ATTEND Internal Medicine Hematology & Oncology
DX: D05.11 Intraductal carcinoma in situ of right breast (principal)